=== PATIENT | female | born 1985 | race Caucasian/White ===

== ENCOUNTER 2016-12-20 02:41 | Emergency (ER) | payer OTHER ==
[~2016-12-20 02:41] MED LIST: CLIN150 PO
[2016-12-20 02:43] VITALS: BP 142/101; PULSE 102; RESP 14; TEMP 97.9; O2SAT 97
[2016-12-20] MEDS ORDERED: OXYC15TA PO (02:57)
[2016-12-20] MEDS ORDERED: BACT800T5 PO (03:02)
--- NOTE | 2016-12-20 03:03 | PD ---
HPI Chief Complaint: Skin Problem Time Seen by Provider: 02:59 Travel History International Travel<30 days: No Contact w/Intl Traveler<30days: No Traveled to known affect area: No History of Present Illness HPI 30-year-old female presents to the emergency department for evaluation of a hard and tender area to her right antecubital area that occurred after she injected methamphetamine 4 days ago. She states she has not injected in that site since. Patient denies any fevers or chills. She states she has history of chronic back pain and takes oxycodone. She denies a chest or shortness breath. No abdominal pain. No nausea, vomiting, diarrhea. She denies . Patient has no other complaints at this time. PFSH Past Medical History Arthritis: Yes Blood Disorders: No Diminished Hearing: No Musculoskeletal: Yes (HERNIATED DISC) Reproductive: Yes (OVARIAN CYST) ?: Not Menopausal: No : 4 Para: 3 Miscarriage: 0 : 1 Social History Alcohol Use: Yes (occ) Tobacco Use: Yes ("1/2 pack of cigarettes a day") Substance Use: No (DENIES) Allergies-Medications (Allergen,Severity, Reaction): Coded Allergies: No Known Allergies (Verified , 12/20/16) Per pt. Reported Meds & Prescriptions Reported Meds & Active Scripts Active Reported Oxycodone (Oxycodone HCl) 15 Mg Tab 15 Mg PO Q6H PRN Review of Systems Except as stated in HPI: all other systems reviewed are Neg Physical Exam Narrative GENERAL: Well-nourished, well-developed female patient, ambulatory. Afebrile. SKIN: Focused skin assessment warm/dry. Patient has a small area of induration to the right antecubital area without erythema. No lymphangitis. No fluctuance. HEAD: Normocephalic. Atraumatic. EYES: No scleral icterus. No injection or drainage. NECK: Supple, trachea midline. No JVD or lymphadenopathy. CARDIOVASCULAR: Regular rate and rhythm without murmurs, gallops, or rubs. Right radial pulses 2+. RESPIRATORY: Breath sounds equal bilaterally. No accessory muscle use. Lungs sounds are clear to auscultation. GASTROINTESTINAL: Abdomen soft, non-tender, nondistended. MUSCULOSKELETAL: No cyanosis, or edema. Patient has full flexion and extension of the right elbow without pain or stiffness. BACK: Nontender without obvious deformity. No CVA tenderness. Data Data Last Documented VS Vital Signs Date Time Temp Pulse Resp B/P Pulse Ox O2 Delivery O2 Flow Rate FiO2 12/20/16 02:43 97.9 102 14 142/101 97 Room Air MDM Medical Decision Making Medical Screen Exam Complete: Yes Emergency Medical Condition: Yes Medical Record Reviewed: Yes Differential Diagnosis Thrombophlebitis versus cellulitis versus abscess Narrative Course 30-year-old female presents to the emergency department for evaluation of swelling and pain to her right antecubital area after injecting methamphetamine 4 days ago. Physical exam is consistent with a thrombophlebitis. No evidence of DVT or abscess. No evidence of septic joint on exam. Patient appears well. She'll be discharged with a prescription for Bactrim. She is instructed to do warm compresses. She is return for any acute worsening of symptoms. She verbalizes agreement and understanding. Diagnosis Primary Impression: Thrombophlebitis arm Referrals: Primary Care Physician 2 days Patient Instructions: General Instructions, Superficial Thrombophlebitis (ED) Additional Instructions: Warm moist compresses. Take antibiotic as directed until gone. Stop injecting drugs. Follow-up with your primary care physician. Return to the emergency department for any acute worsening of symptoms. Med/Other Pt SpecificInfo: Prescription(s) given Scripts Sulfamethoxazole-Trimethoprim (Bactrim DS)800-160 Mg Tab1 Tab PO BID #14 TAB Ref 0 Prov:MarioKim 12/20/16 Disposition: 01 DISCHARGE HOME Condition: Stable Kim Martin December 20, 2016 03:03
== END 2016-12-20 03:19 | disposition home or self-care (01) ==
LOC: NEPD 02:41
DX: I80.8 Phlebitis and thrombophlebitis of other sites (principal); G89.29 Other chronic pain; M54.5 Low back pain; F17.210 Nicotine dependence, cigarettes, uncomplicated
CPT/HCPCS: 99283

== ENCOUNTER 2017-04-10 13:53 | Emergency (ER) | payer OTHER ==
[~2017-04-10] VITALS: Ht 154.9 cm; Wt 63.5 kg
[~2017-04-10 13:53] MED LIST changes: +BACT800T5 PO; -CLIN150 PO; +OXYC15TA PO
[2017-04-10 13:56] VITALS: BP 126/71; PULSE 98; RESP 18; TEMP 97.7; O2SAT 96
--- NOTE | 2017-04-10 14:02 | PD ---
HPI . left forearm abscess Chief Complaint: Lump, Cyst, Hernia Time Seen by Provider: 14:02 Travel History International Travel<30 days: No Contact w/Intl Traveler<30days: No Traveled to known affect area: No History of Present Illness HPI 31 yr old female who is an IV drug user tells me she shot up "D" 3 weeks ago into her left forearm and has had a swelling that is not going down. She denies any fever or chills. PFSH Past Medical History Arthritis: Yes Blood Disorders: No Diminished Hearing: No Musculoskeletal: Yes (HERNIATED DISC) Reproductive: Yes (OVARIAN CYST) ?: Not LMP: 04/02/17 Menopausal: No : 4 Para: 3 Miscarriage: 0 : 1 Social History Alcohol Use: Yes (occ) Tobacco Use: Yes ("1/2 pack of cigarettes a day") Substance Use: No (DENIES) Allergies-Medications (Allergen,Severity, Reaction): Coded Allergies: fentanyl (Verified Allergy, Severe, THROAT SWELLING, 04/10/17) Reported Meds & Prescriptions Reported Meds & Active Scripts Active Bactrim DS (Sulfamethoxazole-Trimethoprim) 800-160 Mg Tab 1 Tab PO BID Bactrim DS (Sulfamethoxazole-Trimethoprim) 800-160 Mg Tab 1 Tab PO BID Reported Oxycodone (Oxycodone HCl) 15 Mg Tab 15 Mg PO Q6H PRN Review of Systems General / Constitutional: No: Fever Eyes: No: Visual changes HENT: No: Headaches Cardiovascular: No: Chest Pain or Discomfort Respiratory: No: Shortness of Breath Gastrointestinal: No: Abdominal Pain Genitourinary: No: Dysuria Musculoskeletal: No: Pain Skin: Positive Other (left forearm abscess ), No Rash Neurologic: No: Weakness Psychiatric: No: Depression Endocrine: No: Polydipsia Hematologic/Lymphatic: No: Easy Bruising Physical Exam Narrative GENERAL: AAO x 3, no acute distress, Well-nourished, well-developed patient. SKIN: Warm and dry. No visible rashes or bruising. Left forearm with a 2.5 cm induration with slight fluctuance in the center. Surrounding zone of inflammation extending about 0.5 cm out. HEAD: Normocephalic and atraumatic. EYES: No scleral icterus. No injection or drainage. ENT: No nasal drainage noted. Mucous membranes pink. Airway patent. NECK: Supple, trachea midline. No JVD. CARDIOVASCULAR: Regular rate and rhythm without murmurs, gallops, or rubs. RESPIRATORY: Breath sounds equal bilaterally. No accessory muscle use. No rhonchi or rales. GASTROINTESTINAL: Visual inspection normal EXTREMITIES: No cyanosis or edema. BACK: Nontender without obvious deformity. No CVA tenderness. 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 Data Data Last Documented VS Vital Signs Date Time Temp Pulse Resp B/P (MAP) Pulse Ox O2 Delivery O2 Flow Rate FiO2 04/10/17 13:56 97.7 98 18 126/71 (89) 96 Room Air Orders Orders Wound Care (04/10/17 14:04) Lidocaine 1% Inj (50 Ml) (Xylocaine 1% I (04/10/17 14:15) MDM Medical Decision Making Medical Screen Exam Complete: Yes Emergency Medical Condition: Yes Medical Record Reviewed: Yes Differential Diagnosis Abscess, cellulitis, IV drug use Narrative Course 31-year-old female here with a left forearm abscess status post injecting IV drugs into the spot. Patient gave verbal consent and Incision and drainage performed. Slight purulent matter expelled from site. Patient tolerated without incident. I provided her with Bactrim upon discharge. I recommend keeping the area clean with soap and water. Return for any worsening of infection. We discussed quitting drugs. Patient verbalized understanding of instructions, questions were answered, and thanked me for their care. I advised them if their condition worsens, please return to the nearest emergency room for further care. Procedures Procedure Narrative After the risks and benefits were discussed the following procedure was performed: INCISION AND DRAINAGE OF ABSCESS: The area was prepped and was sterilely draped. A subcutaneous wheal of 1% % Xylocaine with a total number 3 mL was used to anesthetize the area. The area was properly anesthetized. A number 11 scalpel was used to make a 0.5-cm incision across the area of the abscess. The abscess was drained an irrigated with normal saline. Sterile dressing applied. Patient advised to have packing removed in two days. Diagnosis Primary Impression: Abscess of forearm, left Patient Instructions: General Instructions Additional Instructions: Rest, hydrate. Change the dressing daily. You may bathe normally. Do not submerge the wound. Take the antibiotics as they are prescribed, even if your symptoms resolve during the course of treatment. Utilize [id number] pain medications, as described on the label, as needed. [place] for worsening signs of infection which include fever, increased redness , increased warmth, purulent drainage, increased swelling or streaking. If any of these develop, please go to the nearest emergency room. Follow-up with your primary care provider in next week. Return to the ED for any urgent or emergent medical condition. Med/Other Pt SpecificInfo: Prescription(s) given Scripts Sulfamethoxazole-Trimethoprim (Bactrim DS) 800-160 Mg Tab 1 TAB PO BID for Infection, #20 TAB 0 Refills Prov: Tomy Brush MD 04/10/17 Disposition: 01 DISCHARGE HOME Condition: Stable Odalys Landis Apr 10, 2017 14:02
[2017-04-10] MEDS ORDERED: LIDOCAINE HCL 1% 50 ML VIAL INFIL ONE (14:15)
[2017-04-10] MEDS ORDERED: BACT800T5 PO (14:17)
== END 2017-04-10 14:29 | disposition home or self-care (01) ==
LOC: NEPK 13:53
DX: L02.414 Cutaneous abscess of left upper limb (principal); Z72.0 Tobacco use
CPT/HCPCS: 10061

== ENCOUNTER 2017-07-02 19:37 | Emergency (ER) | payer OTHER ==
[~2017-07-02] VITALS: Ht 162.6 cm; Wt 63.0 kg
[2017-07-02 19:37] VITALS: BP 128/79; PULSE 98; RESP 16; TEMP 98; O2SAT 98
--- NOTE | 2017-07-02 20:59 | PD ---
HPI Chief Complaint: Injury Time Seen by Provider: 20:53 Travel History International Travel<30 days: No Contact w/Intl Traveler<30days: No Traveled to known affect area: No History of Present Illness HPI 31-year-old female presents to the emergency room for evaluation of left second finger pain and swelling for the past few days. Patient states she was playing with her dog when she accidentally slammed her finger against a wall. 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 Patient states "to be honest with you, I just need a work note." Patient denies any paresthesias. States pain is localized to the proximal MCP joint. She is only on pain medication for her chronic low back pain. Patient also complains of upper respiratory infection that started 3 days ago. Denies fever, chills, sore throat, or earache. She has cough and congestion. PFSH Past Medical History Arthritis: Yes Blood Disorders: No Diminished Hearing: No Musculoskeletal: Yes (HERNIATED DISC) Reproductive: Yes (OVARIAN CYST) Immunizations Current: Yes ?: Not LMP: 06/20/17 Menopausal: No : 4 Para: 3 Miscarriage: 0 : 1 Ovarian Cysts: Yes Past Surgical History Surgical History: No Previous Surgery Social History Alcohol Use: Yes (occ) Tobacco Use: Yes ("1 pack of cigarettes a day") Substance Use: No (DENIES) Allergies-Medications (Allergen,Severity, Reaction): Coded Allergies: fentanyl (Verified Allergy, Severe, THROAT SWELLING, 07/02/17) Reported Meds & Prescriptions Reported Meds & Active Scripts Active Bactrim DS (Sulfamethoxazole-Trimethoprim) 800-160 Mg Tab 1 Tab PO BID Bactrim DS (Sulfamethoxazole-Trimethoprim) 800-160 Mg Tab 1 Tab PO BID Reported Oxycodone (Oxycodone HCl) 15 Mg Tab 15 Mg PO Q6H PRN Review of Systems Except as stated in HPI: all other systems reviewed are Neg Physical Exam Narrative GENERAL: Well-nourished, well-developed female in no acute distress. Afebrile. Ambulatory. SKIN: Focused skin assessment warm/dry. Mild ecchymosis around the MCP of the left second finger. HEAD: Normocephalic. EYES: No scleral icterus. No injection or drainage. ENT: Mucosa pink and moist. No erythema or exudates. No uvular edema. No uvular , palatal, or tonsillar deviation. Airway patent. Nasal turbinates appear normal without nasal blood, purulent drainage or septal hematoma. EARS: Bilateral pinnae and external canals appear within normal limits. Bilateral tympanic membranes without erythema, dullness or perforation. NECK: Supple, trachea midline. No JVD or lymphadenopathy. CARDIOVASCULAR: Regular rate and rhythm without murmurs, gallops, or rubs. RESPIRATORY: Breath sounds equal bilaterally. No accessory muscle use. No crackles, rales, wheezes, or rhonchi. MUSCULOSKELETAL: No cyanosis, or edema. Less than 2 second capillary refill distally. Full range of motion of the left hand. No bony tenderness to palpation of the left second finger or MCP joint. Data Data Last Documented VS Vital Signs Date Time Temp Pulse Resp B/P (MAP) Pulse Ox O2 Delivery O2 Flow Rate FiO2 07/02/17 19:37 98.0 98 16 128/79 (95) 98 Room Air MDM Medical Decision Making Medical Screen Exam Complete: Yes Emergency Medical Condition: Yes Medical Record Reviewed: Yes Differential Diagnosis Contusion, strain, sprain, fracture Narrative Course 31-year-old female presents to the emergency room for evaluation of left second finger pain and upper respiratory infection. Symptoms started at the same time , 3 days ago. They're unrelated. Patient struck her finger against the wall and has had pain since then. No paresthesias. Finger is neurovascularly intact with less than 2 second capillary refill distally. No edema, ecchymosis , or bony tenderness to palpation. Full range of motion of the left hand. No indication for imaging. Patient likely has contusion. She also has cough and congestion for 3 days. Physical exam is reassuring. Vital signs stable. No evidence of bacterial infection in the ears, throat, or lungs. This is viral upper respiratory infection. She will be discharged with instructions to follow -up with a PCP or return for worsening symptoms. She understands and agrees to plan. Diagnosis Primary Impression: Finger contusion Qualified Codes: S60.022A - Contusion of left index finger without damage to nail, initial encounter Additional Impression: Upper respiratory infection Qualified Codes: J00 - Acute nasopharyngitis [common cold] Referrals: Primary Care Physician Patient Instructions: General Instructions Departure Forms: Tests/Procedures, Work Release Enter return to work date: Jul 03, 2017 Additional Instructions: Rest and drink plenty of fluids. Take ibuprofen with food as directed, as needed for pain. Apply ice to the affected area for 20 minutes at a time, as needed for pain and swelling. Follow-up with a primary care physician. Return to the emergency room for worsening symptoms. Disposition: 01 DISCHARGE HOME Condition: Stable Yaneli Lui Jul 02, 2017 20:59
== END 2017-07-02 21:09 | disposition home or self-care (01) ==
LOC: NEPK 19:37
DX: S60.022A Contusion of left index finger without damage to nail, initial encounter (principal); J06.9 Acute upper respiratory infection, unspecified; W22.01XA Walked into wall, initial encounter; F17.210 Nicotine dependence, cigarettes, uncomplicated
CPT/HCPCS: 99282